=== PATIENT | male | born 1980 | race Hispanic/Latino ===

== ENCOUNTER 2016-07-05 18:53 | Emergency (ER) | payer OTHER ==
[~2016-07-05] VITALS: Ht 167.6 cm; Wt 82.1 kg
[2016-07-05] MEDS ORDERED: PERCOCET 5/31 TABLET PO (22:52)
[2016-07-05 23:15] VITALS: BP 139/82
== END 2016-07-05 23:16 | disposition home or self-care (01) ==
LOC: EME 18:53
DX: S22.42XA Multiple fractures of ribs, left side, initial encounter for closed fracture (principal); M25.512 Pain in left shoulder; V47.5XXA Car driver injured in collision with fixed or stationary object in traffic accident, initial encounter; I10 Essential (primary) hypertension; F17.200 Nicotine dependence, unspecified, uncomplicated
CPT/HCPCS: 71100; 73030; 99281; 99284